=== PATIENT | female | born 1950 | race Caucasian/White ===

== ENCOUNTER → 2016-04-14 | Outpatient (CLI) | payer OTHER ==
--- NOTE | 2016-04-14 17:07 | US ---
Right Breast Ultrasound History: Evaluate palpable area on the periphery of a breast implant in a 65-year-old female who is s tatus post bilateral mastectomies 25 years ago. She does have a history of a silicone implant that ru ptured many years ago and was replaced. Technique: Longitudinal and transverse images were obtained utilizing a 15 MHz transducer. Color Dopp ler evaluation is employed for assessment of vascularity. Findings: On physical examination, there is a subtle palpable asymmetry right on the margin of the br east implant. Sonographic interrogation of the region demonstrates a well-circumscribed hyperechoic a zee which is probably related to minimal residual silicone from the previous rupture. There is a seco nd smaller area which is not palpable also presumably a small silicone deposit. No suspicious solid l esion is identified. Impression: Benign findings, BI-RADS 2. Recommendation: Continued clinical follow up and as long as the physical examination is negative, no additional imaging would be considered indicated. Findings and follow up recommendations were reviewed with the patient in detail. [facility] will send a result letter to the patient.
== END ==
LOC: FIMAGING 15:32
PROVIDERS: ATTEND Obstetrics & Gynecology
DX: Z12.39 Encounter for other screening for malignant neoplasm of breast (principal); N63 Unspecified lump in breast; Z90.13 Acquired absence of bilateral breasts and nipples

== ENCOUNTER → 2016-06-02 | Outpatient (CLI) | payer OTHER | LOC: FIMAGING 07:24 | PROVIDERS: ATTEND Internal Medicine | DX: R10.11 Right upper quadrant pain (principal) ==

== ENCOUNTER → 2016-11-08 | Outpatient (CLI) | payer OTHER | LOC: FIMAGING 15:41 | PROVIDERS: ATTEND Physician Assistant | DX: M41.85 Other forms of scoliosis, thoracolumbar region (principal); M51.26 Other intervertebral disc displacement, lumbar region; M47.896 Other spondylosis, lumbar region ==

== ENCOUNTER → 2017-02-12 | Outpatient (CLI) | payer OTHER | LOC: FIMAGING 15:31 | PROVIDERS: ATTEND Internal Medicine | DX: M21.751 Unequal limb length (acquired), right femur (principal) ==

== ENCOUNTER → 2017-11-19 | Outpatient (CLI) | payer OTHER | LOC: FIMAGING 10:58 | PROVIDERS: ATTEND Physician Assistant | DX: M54.5 Low back pain (principal) ==